=== PATIENT | female | born 1970 | race Caucasian/White ===

== ENCOUNTER 2016-05-31 07:13 | Outpatient (RCR) | payer BC ==
--- OUTSIDE RECORDS SUMMARY | 2016-05-25 17:01 | XMS REPORT | Continuity of Care Document ---
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 [id number] Ervin Sullivan 17 Self / Same As Patient Advance Directives Directive Response Recorded Date/Time Advance Directives No 02/11/15 9:26am Resuscitation Status Full Code 02/11/15 9:26am Problems Medical Problems Problem Onset Date Status Left ureteral calculus Unknown Active Medications Medication Dose Route Sig Days/Qty Instructions Order Date Discontinued Date Status Hydrocodone Bit/Acetaminophen 1-2 Tab PO EVERY 6 HOURS PRN PAIN 15 Qty 02/08/15 Active Fluconazole 150 Mg PO DAILY 3 Qty 02/11/15 Active Phenazopyridine HCl 1 Each PO TID PRN For Pain 21 Qty 02/11/15 Active Nitrofurantoin Macrocrystals 1 Each PO TWICE A DAY 14 Qty 02/11/15 Active Social History Social History Problem Response Recorded Date/Time Alcohol Use Denies Use 02/11/2015 9:26am Recreational Drug Use No 02/11/2015 9:26am Recent Foreign Travel No 02/11/2015 9:26am Smoking Status Former Smoker 02/11/2015 9:29am Do you dip or chew tobacco? No 02/08/2015 1:47am Query Response Start Date Stop Date Smoking Status Former Smoker Hospital Discharge Instructions No hospital discharge instructions. Plan of Care No plan of care. Functional Status No functional status results. Allergies, Adverse Reactions, Alerts Allergen Type Severity Reaction Status Last Updated No Known Drug Allergies Active 02/08/15 Immunizations No immunization records. Vital Signs Acute Vital Signs Vital Response Date/Time Temperature (Fahrenheit) 97.4 degrees F (97.6 - 99.5) Temperature (Calculated Celsius) 36.73826 degrees C (36.4 - 37.5) Temperature Source Temporal Pulse Rate (adult) 61 bpm (60 - 90) Respiratory Rate 16 bpm (12 - 24) O2 Sat by Pulse Oximetry 95 % (88 - 100) Blood Pressure 106/82 mm Hg Pain Pain Intensity 0 Height (Feet) 5 feet Height (Inches) 10.00 inches Height (Calculated Centimeters) 177.002362 cm Weight (Pounds) 214 pounds Weight (Calculated Grams) 77093.768 gm Weight (Calculated Kilograms) 97.768827 kilograms Calculated BMI 35.61 Results Laboratory Results Test Name Result Units Flags Reference Collection Date/Time Result Date/ Time Comments White Blood Count 9.2 10^3/uL 4.3-11.0 02/08/2015 2:0502/08/2015 2: 19am Red Blood Count 4.12 10^6/uL L 4.35-5.85 02/08/2015 2:0502/08/2015 2: 19am Hemoglobin 11.0 G/DL L 11.5-16.0 02/08/2015 2:0502/08/2015 2:19am Hematocrit 34 % L 35-52 02/08/2015 2:0502/08/2015 2:19am Mean Corpuscular Volume 82 FL 80-99 02/08/2015 2:0502/08/2015 2: 19am Mean Corpuscular Hemoglobin 27 PG 25-34 02/08/2015 2:0502/08/2015 2: 19am Mean Corpuscular Hemoglobin Concent 33 G/DL 32-36 02/08/2015 2:05 2:19am Red Cell Distribution Width 15.9 % H 10.0-14.5 02/08/2015 2:052014 2:19am Platelet Count 380 10^3/uL 130-400 02/08/2015 2:0502/08/2015 2:19am Mean Platelet Volume 9.0 FL 7.4-10.4 02/08/2015 2:0502/08/2015 2: 19am Neutrophils (%) (Auto) 60 % 42-75 02/08/2015 2:0502/08/2015 2:19am Lymphocytes (%) (Auto) 29 % 12-44 02/08/2015 2:0502/08/2015 2:19am Monocytes (%) (Auto) 10 % 0-12 02/08/2015 2:02/08/2015 2:19am Eosinophils (%) (Auto) 1 % 0-10 02/08/2015 2:0502/08/2015 2:19am Basophils (%) (Auto) 0 % 0-10 02/08/2015 2:02/08/2015 2:19am Neutrophils # (Auto) 5.5 X 10^3 1.8-7.8 02/08/2015 2:0502/08/2015 2: 19am Lymphocytes # (Auto) 2.7 X 10^3 1.0-4.0 02/08/2015 2:0502/08/2015 2: 19am Monocytes # (Auto) 0.9 X 10^3 0.0-1.0 02/08/2015 2:02/08/2015 2: 19am Eosinophils # (Auto) 0.1 10^3/uL 0.0-0.3 02/08/2015 2:02/08/2015 2 :19am Basophils # (Auto) 0.0 10^3/uL 0.0-0.1 02/08/2015 2:0502/08/2015 2: 19am Urine Color YELLOW 02/08/2015 2:3502/08/2015 2:50am Urine Clarity CLEAR 02/08/2015 2:35am 02/08/2015 2:50am Urine pH 5 5-9 02/08/2015 2:35am 02/08/2015 2:50am Urine Specific [place] 1.030 * 1.016-1.022 02/08/2015 2:35am 2014 2:50am Urine Protein NEGATIVE NEGATIVE 02/08/2015 2:35am 02/08/2015 2:50am Urine Glucose (UA) NEGATIVE NEGATIVE 02/08/2015 2:35am 02/08/2015 2: 50am Urine RBC (Auto) 4+ * NEGATIVE 02/08/2015 2:35am 02/08/2015 2:50am Urine Ketones NEGATIVE NEGATIVE 02/08/2015 2:35am 02/08/2015 2:50am Urine Nitrite NEGATIVE NEGATIVE 02/08/2015 2:35am 02/08/2015 2:50am Urine Bilirubin NEGATIVE NEGATIVE 02/08/2015 2:35am 02/08/2015 2: 50am Urine Urobilinogen NORMAL MG/DL NORMAL 02/08/2015 2:35am 02/08/2015 2: 50am Urine Leukocyte Esterase 1+ * NEGATIVE 02/08/2015 2:35am 02/08/2015 2: 50am Urine RBC 25-50 /HPF * 02/08/2015 2:35am 02/08/2015 2:50am Urine WBC 0-2 /HPF 02/08/2015 2:35am 02/08/2015 2:50am Urine Bacteria TRACE /HPF 02/08/2015 2:35am 02/08/2015 2:50am Urine Squamous Epithelial Cells 5-10 /HPF 02/08/2015 2:35am 2014 2:50am Urine Crystals NONE /LPF 02/08/2015 2:35am 02/08/2015 2:50am Urine Casts NONE /LPF 02/08/2015 2:35am 02/08/2015 2:50am Urine Mucus MODERATE /LPF * 02/08/2015 2:35am 02/08/2015 2:50am Urine Culture Indicated YES 02/08/2015 2:35am 02/08/2015 2:50am Sodium Level 138 MMOL/L 135-145 02/08/2015 2:05am 02/08/2015 2:42am Potassium Level 3.7 MMOL/L 3.6-5.0 02/08/2015 2:05am 02/08/2015 2:42am Chloride Level 109 MMOL/L H 98-107 02/08/2015 2:05am 02/08/2015 2:42am Carbon Dioxide Level 21 MMOL/L 21-32 02/08/2015 2:05am 02/08/2015 2: 42am Blood Urea Nitrogen 13 MG/DL 7-18 02/08/2015 2:05am 02/08/2015 2:42am Creatinine 1.03 MG/DL 0.60-1.30 02/08/2015 2:0502/08/2015 2:42am BUN/Creatinine Ratio 13 02/08/2015 2:0502/08/2015 2:42am Estimat Glomerular Filtration Rate 58 02/08/2015 2:0502/08/2015 2:42am GFR INTERPRETIVE DATA UNITS FOR ESTIMATED GFR (eGFR): mL/min/1.73 M2 REFERENCE RANGE FOR ESTIMATED GFR (eGFR) eGFR NORMAL eGFR >60 MODERATELY DECREASED eGFR 30-59 SEVERLY DECREASED eGFR 15-29 KIDNEY FAILURE <15 (OR DIALYSIS) Glucose Level 115 MG/DL H 70-105 02/08/2015 2:0502/08/2015 2:42am Calcium Level 9.3 MG/DL 8.5-10.1 02/08/2015 2:02/08/2015 2:42am Total Bilirubin 0.2 MG/DL 0.1-1.0 02/08/2015 2:0502/08/2015 2:42am Alkaline Phosphatase 92 U/L 40-136 02/08/2015 2:0502/08/2015 2:42am Aspartate Amino Transf (AST/SGOT) 19 U/L 5-34 02/08/2015 2:052014 2:42am Alanine Aminotransferase (ALT/SGPT) 22 U/L 0-55 02/08/2015 2:0502/08 2:42am Total Protein 7.4 G/DL 6.4-8.2 02/08/2015 2:02/08/2015 2:42am Albumin 4.0 G/DL 3.2-4.5 02/08/2015 2:0502/08/2015 2:42am Lipase 41 U/L 8-78 02/08/2015 2:0502/08/2015 2:42am Uric Acid 4.6 MG/DL 2.6-7.2 02/10/2015 11:40am 02/10/2015 12:17pm Phosphorus Level 2.5 MG/DL 2.3-4.7 02/10/2015 11:40am 02/10/2015 12: 17pm Parathyroid Hormone (Intact) 35 PG/ML 10-65 02/10/2015 11:40am 2014 8:00am The Interpretation for this test has been moved online at: [email or web address] Enter Test Number:[id number] Procedures No known history of procedures. Encounters Encounter Location Date/Time Registered Surgical Day Care [facility] 02/11/15 7:15am Registered Clinic [facility] 02/10/15 11:21am Registered Clinic [facility] 02/10/15 9:51am Departed Emergency Room [facility] 02/08/15 1:28am
--- NOTE | 2016-05-25 18:07 | Diagnostic Imaging Report ---
EXAMINATION: AP view of the abdomen. INDICATION: Left-sided renal stone. COMPARISON: Comparison made with a prior study from February 11, 2015. FINDINGS: There are three stable calcifications demonstrated within the pelvis. In correlation with a prior CT examination of February 08, 2015, these appear to reflect phleboliths. At the time of the prior radiographs, there was a fourth calcification demonstrated within the left pelvis, which is no longer present. There are surgical clips in the right upper quadrant. The bowel gas pattern is nonobstructed. No acute osseous abnormality demonstrated. IMPRESSION: 1. The previous distal left ureteral stone is no longer evident. The residual stable three calcifications within the pelvis are compatible with phleboliths. Dictated by: Dictated on workstation # [id number]
[~2016-05-31 07:13] MED LIST: DICL50TA4 PO; FLUC150T PO; HYDR-1231 PO; NF-SKEL800 PO; NITR-65 PO; PHEN200T27 PO
--- OUTSIDE RECORDS SUMMARY | 2016-05-31 07:16 | XMS REPORT | Continuity of Care Document ---
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 Phone LIUDMILA CHEN DO PCP Insurance Providers Payer Name Policy Number Subscriber Name Relationship Rust [id number] Ervin Sullivan 17 Self / Same As [...] F (97.6 - 99.5) Temperature (Calculated Celsius) 36.32721 degrees C (36.4 - 37.5) Temperature Source Temporal Pulse Rate (adult) 61 bpm (60 - 90) Respiratory Rate 16 bpm (12 - 24) O2 Sat by Pulse Oximetry 95 % (88 - 100) Blood Pressure 106/82 mm Hg Pain Pain Intensity 0 Height (Feet) 5 feet Height (Inches) 10.00 inches Height (Calculated Centimeters) 177.422223 cm Weight (Pounds) 214 pounds Weight (Calculated Grams) 25167.768 gm Weight (Calculated Kilograms) 97.533019 kilograms Calculated BMI 35.61 Results Laboratory Results [...] 5-9 02/08/2015 2:35am 02/08/2015 2:50am Urine Specific [place] 1.030 * 1.016-1.022 02/08/2015 2:35am 2014 2:50am [...] this test has been moved online at: [email or web address] Enter Test Number:[id number] Procedures No known history of procedures. Encounters Encounter Location Date/Time Registered Surgical Day Care [facility] 02/11/15 7:15am Registered Clinic [facility] 02/10/15 11:21am Registered Clinic [facility] 02/10/15 9:51am Departed Emergency Room [facility] 02/08/15 1:28am
[2016-06-04 14:44] LABS: STONE RISK AMMONIUM 22 mEq/24hr (14-62); STONE RISK BRUSHITE 3.06 (< 2.00); STONE RISK CA OXALATE 1.01 (< 2.00); STONE RISK CALCIUM 108 mg/day (< 250); STONE RISK CITRATE 761 mg/day (> 320); STONE RISK CREATININE 1441 mg/day (600-1800); STONE RISK MAGNESIUM 89 mg/day (> 60); STONE RISK OXALATE 34 mg/day (< 45); STONE RISK PH 7.2 (5.5-7.0); STONE RISK PHOSPHOROUS 1163 mg/day (< 1100); STONE RISK POTASSIUM 43 mEq/24hr (19-135); STONE RISK SODIUM 171 mEq/24hr (< 200); STONE RISK SODIUM URATES 4.68 (< 2.00); STONE RISK STRUVITE 22.68 (< 75.00); STONE RISK SULFITE 6 mmol/day (< 30); STONE RISK TOTAL VOLUME 1.36 L/day (> 2.00); STONE RISK URIC ACID 617 mg/day (< 700); STONE RISK URIC ACID SAT 0.14 (< 2.00)
== END 2016-08-23 | disposition home or self-care (01) ==
LOC: RAD 07:13
PROVIDERS: ATTEND Urology
DX: N20.0 Calculus of kidney (principal)
CPT/HCPCS: 36415; 74000; 82140; 82340; 82507; 82570; 83735; 83945; 83986; 84105; 84133; 84300; 84392; 84560

== ENCOUNTER → 2017-05-26 | Outpatient (CLI) | payer BC ==
--- NOTE | 2017-05-26 20:23 | Diagnostic Imaging Report ---
INDICATION: Kidney stones COMPARISON STUDY: KUB from 5:26 PM FINDINGS: Supine view of the abdomen demonstrates a 3 mm calculi overlying the right L2 transverse process. Couple of phleboliths are present in the lower pelvis. The bowel gas pattern is normal. IMPRESSION: There is a 3 mm calculi overlying the right L2 transverse process. Dictated by: Dictated on workstation # [id number]
== END ==
LOC: RAD 17:02
PROVIDERS: ATTEND Urology
DX: N20.0 Calculus of kidney (principal)
CPT/HCPCS: 74000

== ENCOUNTER → 2019-07-31 | Outpatient (CLI) | payer BC ==
--- NOTE | 2019-07-31 16:48 | Diagnostic Imaging Report ---
INDICATION: History of stones. TIME OF EXAM: 4:35 PM COMPARISON: Correlation is made with prior study from 06/09/2018. FINDINGS: Tiny calcific density overlies lower pole left kidney, similar to prior exam. Pelvic calcific densities are stable and likely phleboliths. No calculi along the course of the ureters are seen. The bowel gas pattern is unremarkable. Gallbladder surgically absent. IMPRESSION: Tiny calculus lower pole left kidney unchanged from prior exam. No new abnormality is seen. Dictated by: Dictated on workstation # [id number]
== END ==
LOC: RAD 16:15
PROVIDERS: ATTEND Urology
DX: Z87.442 Personal history of urinary calculi (principal); Z90.49 Acquired absence of other specified parts of digestive tract
CPT/HCPCS: 74018

== ENCOUNTER 2020-06-19 05:41 | Outpatient (RCR) | payer BC | END 2020-09-17 | LOC: PREOP 05:41 | PROVIDERS: ATTEND Surgery | DX: Z01.812 Encounter for preprocedural laboratory examination (principal); Z12.11 Encounter for screening for malignant neoplasm of colon; K62.5 Hemorrhage of anus and rectum ==

== ENCOUNTER → 2022-01-29 | Outpatient (CLI) | payer BC ==
--- NOTE | 2022-01-29 14:42 | Diagnostic Imaging Report ---
PROCEDURE: Pelvic comp/transvaginal sonogram. TECHNIQUE: Complete transabdominal and transvaginal pelvic ultrasound was performed. In addition, limited pelvic Doppler was performed. INDICATION: Uterine leiomyoma. The uterus is anteverted measuring 7.4 x 4.4 x 6.1 cm. Endometrium is 6 mm in thickness. There appears to be a posterior fibroid measuring 3.6 x 2.6 x 3.5 cm. The ovaries cannot be visualized. Other cervical nabothian cysts present. No free fluid. IMPRESSION: Uterine fibroid. No other significant abnormality is seen. Note is made that the ovaries cannot be visualized. Dictated by: Dictated on workstation # [id number]
== END ==
LOC: RAD 12:00
PROVIDERS: ATTEND Obstetrics & Gynecology
DX: D25.9 Leiomyoma of uterus, unspecified (principal)
CPT/HCPCS: 76830; 76856